=== PATIENT | male | born 1985 | race Caucasian/White ===

== ENCOUNTER → 2019-11-23 14:22 | Outpatient (BNVA) | payer OTHER, SELFPAY | PROVIDERS: Family Provider Family Medicine; PCP Family Medicine; Referring Provider Dermatology; Visit Provider Otolaryngology | DX: R04.0 Epistaxis (principal); J34.2 Deviated nasal septum | CPT/HCPCS: 99203; 99214 ==

== ENCOUNTER 2019-12-18 06:05 | Emergency (ER) | payer OTHER, SELFPAY ==
[2019-12-18 06:09] VITALS: BP 165/95; PULSE 77; RESP 16; TEMP 36.6; O2SAT 96; BMI 35.9
--- NOTE | 2019-12-18 06:13 | CT_ITS ---
WS: [id number] CT ABDOMEN PELVIS TECHNIQUE: Noncontrast CT of the abdomen and pelvis with coronal and sagittal reformatted images. CLINICAL INFORMATION: r flank pain COMPARISON: None. DLP: 2232.[address] scans at [facility] use at least one of these dose optimization techniques: automat ed exposure control; mA and/or kV adjustment per patient size (includes targeted exams where dose is matched to clinical indication); or iterative reconstruction. FINDINGS: Obstructing right proximal ureteral calculus measuring 3.9 mm. Moderate right proximal ureterectasis. Mild right hydronephrosis. Distal right ureter is decompressed. Normal left kidney and ureter. Noncontrast liver and gallbladder are normal. Noncontrast spleen is normal. Noncontrast pancreas is n ormal. Slight subsegmental atelectasis in the lung bases. Normal GE junction. Normal caliber abdomina l aorta. Normal sigmoid colon. Normal appendix. No evidence of acute appendicitis. No abdominal lymphadenopath y. No inguinal or pelvic sidewall lymphadenopathy. Notified Albert Wisdom M.D. at 12/18/2019 7:[address]/CT kidney stone [id number] IMPRESSION: 1. Obstructing right proximal 3.9 mm ureteral calculus. Mild right hydronephro sis with moderate right ureterectasis. 2. No other acute findings.
[2019-12-18] MEDS: sodium chloride 0.9% 1,000 ML 999 ML IV (06:17)
[2019-12-18 06:31] LABS: Basophils % 0.5 %; Eosinophils # 0.1 10^3/uL (0.0-0.8); Eosinophils % 1.8 %; Hemoglobin 14.4 g/dL (11.7-16.6); Lymphocytes # 1.7 10^3/uL (0.8-4.8); Lymphocytes % 27.5 %; Mean Corpuscular HGB Conc 33.5 g/dL (30.0-36.0); Mean Corpuscular Volume 92.5 fL (80-94); Mean Platelet Volume 9.8 fL (7.4-10.4); Monocytes # 0.4 10^3/uL (0.2-0.9); Monocytes % 6.8 %; Neutrophils # 3.8 10^3/uL (1.8-7.7); Neutrophils % 62.9 %; Nucleated Red Blood Cells % 0 %; Platelet Count 185 10^3/cmm (130-400); Red Blood Count 4.65 10^6/uL (4.1-5.3); Red Cell Distribution Width 12.6 % (12.1-15.1)
[2019-12-18 06:41] VITALS: RESP 16; O2SAT 99
[2019-12-18] MEDS: ondansetron 2 mg/ML SDV 2 mL 4 MG IVP (06:41)
[2019-12-18] MEDS: morphine 4 mg/mL SDV 1 mL IVP (06:41)
--- NOTE | 2019-12-18 06:44 | ED_ITS ---
HPI - General Adult General: Chief complaint: General Medical Stated complaint: right abd/back pain Time Seen by Provider: 12/18/19 06:15 History of Present Illness: HPI narrative: 34 yo male presents with complaints of R flank pain radiating into the R groin. He had not noticed any hematuria. no HX of renal stones. No dysuria urgency or frequency. No fever sweats or chills. Denies diarrhea, no nausea vomitting. Began over night. Onset (ago): hour(s) Location: abdomen (R flank) Radiation: other (R groin) Severity: severe Quality: stabbing Pain Consistency: intermittent Relieving factors: none Exacerbating factors: none Associated symptoms: Deny chest pain, dyspnea, malaise, nausea, rash or vomiting Review of Systems Const: Denies: fever, chills, body aches, change in appetite, fatigue or malaise ENMT: Denies: throat pain, ear pain, nasal discharge or nasal congestion Card: Denies: chest pain, edema, shortness of breath on exertion or shortness of breath when lying down Resp: Denies: shortness of breath, productive cough or non-productive cough GI: Denies: abdominal pain, nausea, vomiting, vomiting blood, coffee grounds in vomit, diarrhea, constipation, bloating, blood in stool or black tarry stool : Denies: flank pain, painful urination, urinary frequency or urinary urgency Skin/Breast: Denies: rash or itching [facility] ED PFSH: Medical History (Updated 12/18/19 @ 07:15 by Albert Wisdom DO) Deviated septum Social History Smoking and tobacco status: never smoked Alcohol intake: never Physical Exam Const: COMMON NORMALS: no apparent distress GENERAL APPEARANCE: cooperative and comfortable ORIENTATION/CONSCIOUSNESS: Yes awake, Yes oriented to person, Yes oriented to place and Yes oriented to time HENMT: COMMON NORMALS: normocephalic, head/scalp atraumatic, hearing grossly normal bilaterally, external ears normal, EAC's normal, TM's normal bilaterally, nasal mucous membranes and turbinates normal, moist oral mucous membranes and oropharynx normal HEAD & SCALP: normocephalic and atraumatic NOSE: nasal mucous membranes and turbinates normal EXTERNAL EAR: Yes external ears normal EXTERNAL AUDITORY CANAL: EAC's normal TYMPANIC MEMBRANE: TM's normal bilaterally Eye: COMMON NORMALS: PERRL, EOMs intact bilaterally, conjunctivae normal and no scleral icterus CONJUNCTIVA: Yes conjunctivae normal PUPIL: Yes PERRL Neck/C-Spine: COMMON NORMALS: full ROM, no lymphadenopathy, supple and no JVD Lymph: LYMPHATIC: no lymphadenopathy noted and no lymphedema noted Resp: COMMON NORMALS: normal respiratory effort, no retractions, no use of accessory muscles and clear to auscultation bilaterally AUSCULTATION: clear to auscultation bilaterally Cardio: COMMON NORMALS: no JVD, regular rate, regular rhythm and no murmurs RATE: regular rate RHYTHM: regular rhythm GI: COMMON NORMALS: soft to palpation and no hepatosplenomegaly AUSCULTATION: Yes normoactive bowel sounds PALPATION: Yes soft, No tender, No guarding and Yes no hepatosplenomegaly : BLADDER/KIDNEY EXAM: Yes CVA tenderness Back/Pelvis: GENERAL BACK: Yes CVA tenderness CVA tenderness: right Extremity: COMMON NORMALS: normal to inspection, normal capillary refill, no clubbing, cyanosis or edema, no calf tenderness and no pedal edema Neuro: SENSORIUM/ORIENTATION: Yes oriented to person, Yes oriented to place and Yes oriented to time Skin: COMMON NORMALS: no rashes or lesions noted GENERAL SKIN EXAM: no rashes or lesions noted Course ED course: 4mm mid/proximal ureter stone. Strain urine, discharged with pain nausea meds. Refer to urology. Vital Signs: Vital signs: Vital Signs Temperature 97.8 F 12/18/19 06:09 Pulse Rate 77 12/18/19 06:09 Respiratory Rate 16 12/18/19 06:41 Blood Pressure 165/95 12/18/19 06:09 Pulse Oximetry 99 12/18/19 06:41 MDM - General Adult Lab Data: Labs: Lab Results 12/18/19 12/18/19 12/18/19 Range/Units 06:24 06:24 06:35 WBC 6.0 (4.0-10.0) 10^3/ uL RBC 4.65 (4.1-5.3) 10^6/u L Hgb 14.4 (11.7-16.6) g/dL Hct 43.0 (42.0-52.0) % MCV 92.5 (80-94) fL MCH 31.0 (28.0-34.0) pg MCHC 33.5 (30.0-36.0) g/dL RDW 12.6 (12.1-15.1) % Plt Count 185 (130-400) 10^3/c mm MPV 9.8 (7.4-10.4) fL Neut % (Auto) 62.9 % Lymph % (Auto) 27.5 % [place] % (Auto) 6.8 % Eos % (Auto) 1.8 % Baso % (Auto) 0.5 % Neut # (Auto) 3.8 (1.8-7.7) 10^3/u L Lymph # (Auto) 1.7 (0.8-4.8) 10^3/u L [place] # (Auto) 0.4 (0.2-0.9) 10^3/u L Eos # (Auto) 0.1 (0.0-0.8) 10^3/u L Baso # (Auto) 0.0 (0.0-0.1) 10^3/u L Nucleated RBC % (a uto) 0 % Nucleated RBCs # 0.0 /100WBC Sodium 140 (136-145) mmol/L Potassium 3.9 (3.5-5.1) mmol/L Chloride 103 (98-107) mmol/L Carbon Dioxide 25 (22-29) mmol/L Anion Gap 15.9 (5-19) BUN 15 (6-20) mg/dL Creatinine 1.0 (0.7-1.2) mg/dL GFR Calculation 84.5 L (90-130) mL/min Glucose 116 H (65-115) mg/dL Calcium 9.5 (8.5-10.5) mg/dL Total Bilirubin 0.4 (0.15-1.2) mg/dL AST 24 (0-40) U/L ALT 45 H (0-41) U/L Alkaline Phosphata se 84 (40-130) IU/L C-Reactive Protein 3.2 (0.0-4.9) mg/L Total Protein 7.7 (6.6-8.7) g/dL Albumin 4.1 (3.5-5.2) g/dL Globulin 3.6 (1.3-4.6) g/dL Lipase 15 (13-60) U/L Urine Color Dark yellow (Yellow) Urine Appearance Clear (CLEAR) Urine pH 5.0 (5-7) Ur Specific Gravit y 1.030 (1.005-1.030) Urine Protein Trace (Negative) Urine Glucose (UA) Norm (Normal) Urine Ketones Negative (Negative) Urine Blood 3+ H (Negative) Urine Nitrate Negative (Negative) Urine Bilirubin Neg (NEGATIVE) Urine Urobilinogen 1.0 (Negative) mg/dL Ur Leukocyte [place] ase Negative (Negative) Urine RBC >100 H (0-2) /hpf Urine WBC 5-10 H (0-5) /hpf Ur Squamous Epith Cells Rare (0-5) Urine Bacteria Trace (NONE) Urine Mucus 2+ Discharge Plan Discharge Patient Disposition: Home, Self-Care Clinical Impression: Renal calculus, right Condition: Stable Prescriptions: New Fitzpatrick 5-325 mg tablet 1 tab PO Q6H PRN (Reason: pain) Qty: 25 RF: 0 Zofran 4 mg tablet 4 mg PO Q6H PRN (Reason: nausea and vomiting) Qty: 20 RF: 0 tamsulosin 0.4 mg capsule 0.4 mg PO DAILY Qty: 20 RF: 0 Discharge Orders: Discharge Order (Routine); Ordered 12/18/19 Ordered By: Albert Wisdom Referrals: Dexter Puente MD [Physician] - (R ureteral stone) Activity Restrictions/Additional Instructions: Case management will call with an appoitment with urology. Coding Level of Care Code ED Mailing Machine Assistant for Chg Fwd Exam Comprehensive
[2019-12-18 06:45] LABS: Protein Urine Trace (Negative); Urine Appearance Clear (CLEAR); Urine Color Dark Yellow (Yellow)
[2019-12-18 06:46] LABS: Alanine Aminotransferase 45 U/L (0-41); Albumin Level 4.1 g/dL (3.5-5.2); Alkaline Phosphatase 84 IU/L (40-130); Anion Gap 15.9 (5-19); Aspartate Amino Transferase 24 U/L (0-40); Blood Urea Nitrogen 15 mg/dL (6-20); Calcium 9.5 mg/dL (8.5-10.5); Carbon Dioxide 25 mmol/L (22-29); Chloride 103 mmol/L (98-107); Globulin 3.6 g/dL (1.3-4.6); Glomerular Filtration Rate 84.5 mL/min (90-130); Glucose 116 mg/dL (65-115); Lipase 15 U/L (13-60); Potassium 3.9 mmol/L (3.5-5.1); Sodium 140 mmol/L (136-145); Total Bilirubin 0.4 mg/dL (0.15-1.2); Total Protein 7.7 g/dL (6.6-8.7)
[2019-12-18 06:46] LABS: Add Urine Microscopic? YES; Bilirubin Urine Neg (NEGATIVE); Blood Urine 3+ (Negative); Glucose Urine UA Norm (Normal); Ketones Urine Negative (Negative); Leukocyte Esterase Urine Negative (Negative); Nitrate Urine Negative (Negative)
[2019-12-18 06:50] LABS: Add Urine Culture? Yes; Bacteria Urine TRACE; Mucus Urine 2+; RBC Urine >100 /hpf (0-2); Squamous Epithelial Cell Urine RARE (0-5)
[2019-12-18 06:58] LABS: C Reactive Protein 3.2 mg/L (0.0-4.9)
[2019-12-18 07:27] VITALS: BP 123/70; PULSE 75; RESP 16; O2SAT 94
--- NOTE | 2019-12-21 11:56 | DCPLANNER ---
late entry - heel caser had message to schedule a follow up appointment for patient with Dr. Puente. Patient had a follow up appointment scheduled for 12.21.19 and patient did attend the appointment.
== END 2019-12-18 07:28 | disposition home or self-care (01) ==
PROVIDERS: Emergency Medicine; Emergency Provider Family Medicine; Family Provider Family Medicine; PCP Family Medicine
DX: N13.2 Hydronephrosis with renal and ureteral calculous obstruction (principal)
CPT/HCPCS: 36415; 74176; 80053; 81001; 83690; 85025; 86140; 87086; 96361; 96374; 96375; 99283; A9270; J2270; J2405; J7030

== ENCOUNTER 2019-12-19 08:41 | Outpatient (CLI) | payer OTHER, SELFPAY ==
--- NOTE | 2019-12-19 08:30 | XR_ITS ---
WS: [id number] KUB, 12/19/2019 Clinical Data: Renal stone Comparison: CT abdomen and pelvis, 12/18/2019 Findings: Right ureteral calculus is probably located on the right at the L3-L4 disc level. There is a large amount of fecal material throughout the colon. No pelvic calcifications are seen. XR/XR KUB [id number] Impression: Right ureteral calculus probably located at the L3-L4 disc level.
== END 2019-12-19 08:42 | disposition home or self-care (01) ==
PROVIDERS: Family Provider Family Medicine; PCP Family Medicine; Visit Provider Urology
DX: N20.0 Calculus of kidney (principal)
CPT/HCPCS: 74018; 81001

== ENCOUNTER 2019-12-21 08:18 | Outpatient (CLI) | payer OTHER, SELFPAY ==
--- NOTE | 2019-12-21 08:23 | XR_ITS ---
WS: [id number] KUB, 12/21/2019 Clinical Data: URETERAL CALCULUS Comparison: KUB, 12/19/2019 Findings: There is no change in the position of the calculus. It is located to the right of the L3-L4 disc leve l. There is fecal material throughout the colon. No renal calculi are seen. There are no calculi in t he pelvis. XR/XR KUB [id number] Impression: No change in probable right mid ureteral calculus.
== END 2019-12-21 08:19 | disposition home or self-care (01) ==
PROVIDERS: Family Provider Family Medicine; PCP Family Medicine; Visit Provider Urology
DX: N20.1 Calculus of ureter (principal)
CPT/HCPCS: 74018; 81001

== ENCOUNTER 2019-12-25 10:31 | Day surgery (SDC) | payer OTHER, SELFPAY ==
[2019-12-22 16:35] VITALS: BMI 28.7
[2019-12-25] VITALS (9 sets, daily range): BP systolic 103–125; BP diastolic 57–82; PULSE 77–94; RESP 16–28; TEMP 36.2–36.4; O2SAT 92–96
--- NOTE | 2019-12-25 10:46 | XR_ITS ---
WS: [id number] XR KUB [id number] REASON FOR EXAM: Refractory right ureteral calculus FINDINGS: Previous exam of December 21, 2019 suggested a stone at the level of the L3-4 vertebra as. A stone is not seen in this area today there is a questionable stone in the region of the bladder. XR/XR KUB [id number] IMPRESSION: Renal calculus appears to have moved down into the area near the bladder.
--- NOTE | 2019-12-25 11:35 | ANES.PREANE2 ---
Pre-Anesthetic Assessment Pre-Anesthetic Assessment: Height/Weight: Height 1.78 m Weight 116.12 kg Temp Pulse Resp BP Pulse Ox 97.5 F L 77 18 124/82 96 12/25/19 11:06 12/25/19 11:06 12/25/19 11:06 12/25/19 11:06 12/25/19 11:06 Preop Diagnosis: Refractory right ureteral calculus/renal colic Proposed Procedure: Operation Date: 12/25/19 13:20 Proposed Procedures p ESWL 67519 24778 N20.1(Not Applicable) - Dexter Puente MD s poss Cystoscopy(Not Applicable) - Dexter Puente MD s Ureteral Stent Placement(Not Applicable) - Dexter Puente MD s Ureteroscopy(Not Applicable) - Dexter Puente MD Last intake: Intake Last Liquid Date 12/25/19 Last Liquid Time 07:00 Last Solid Date 12/23/19 Last Solid Time 19:00 Exam: Pre-Anes Outpt Exam: alert, oriented x 3, clear to auscultation bilaterally and regular rate & rhythm Airway: Submandibular: WNL Cervical ROM: WNL MP: 1 CV/HEM: CV/HEM: HTN : Comments: right ureteral stone Anesthetic Plan: ASA status: 2 Anesthesia: General PFSH Anesthesia PFSH: Social History Smoking and tobacco status: never smoked Alcohol intake: never Adopted: No Caregiver/support person: No Lives independently: No Household members: spouse Marital status: Current occupational status: employed History of recent travel: No Current gender identity: Male Data Anesthesia Cardiac Studies: No Data to Display
[2019-12-25] MEDS: sodium chloride 0.9% 1,000 ML 30 ML IV (11:49)
--- NOTE | 2019-12-25 12:46 | W.PM.OPSUD ---
Surgery/Procedure H&P Update DATE OF PROCEDURE: December 25, 2019 DATE H&P PERFORMED: 12/21/19 H&P UPDATE INFORMATION: I have reviewed H&P completed within last 30 days and Changes to prior documentation as noted here CHANGES TO PREVIOUS DOCUMENTATION: I saw the patient on the and he was seen again on the by my nurse practitioner. Originally on the he wanted to try and pass the stone but on the he was having significantly increased right renal colic. The stone appeared to be in the same position. At that point he wanted to try to go ahead and schedule intervention. We reviewed endoscopy versus ESWL and he chose the latter with or without stent pending response to treatment. Preoperative KUB shows the stone having migrated to the distal ureter. I reviewed that with the patient and offered him further conservative management with hope that he would spontaneously pass it versus go ahead and treat and he chose the latter. Plans will be to do extracorporeal shockwave lithotripsy followed by stent if it appears that the stone has not changed significantly. We will consider retrograde pyelogram if the stone is difficult to identify. All of the above was explained to the patient his mother and his girlfriend. They were comfortable with the plans and agreed to proceed as above. PREOP DIAGNOSIS: Refractory right ureteral calculus/renal colic PLANNED PROCEDURE: Operation Date: 12/25/19 13:20 Proposed Procedures p ESWL [id number] 80357 N20.1(Not Applicable) - Dexter Puente MD s poss Cystoscopy(Not Applicable) - MD michelle Simms Ureteral Stent Placement(Not Applicable) - Dexter Puente MD s Ureteroscopy(Not Applicable) - Dexter Puente MD
--- NOTE | 2019-12-25 13:47 | P.OP_ITS ---
Operative Report Date of procedure: December 25, 2019 Pre-op Diagnosis: Refractory right ureteral calculus/renal colic Post-op diagnosis: same Procedure Done: Extracorporeal shockwave lithotripsy to right distal ureteral stone Pathology: none sent Surgeon: Kwame Anesthesia: General Complications: None Findings: Good change demonstrated in the character of the stone. A total of 3000 shocks administered with an intensity ranging from 1-6. Condition: stable Disposition: PACU Brief History: Johan is a very pleasant 34-year-old white male recently diagnosed with a right proximal ureteral stone with obstruction. He had several episodes of severe right renal colicky pain and ultimately chose to proceed with treatment after failure of the stone to spontaneously pass. KUB preoperatively showed the stone had moved into the distal ureter. He elected to proceed on as scheduled. Procedure: After routine preoperative evaluation examination and obtaining of informed consent he was taken to the operating suite on 12/25/2019 where general anesthesia was administered without difficulty after appropriate timeout was performed, SCDs confirmed to be functioning, preoperative antibiotics administered, beta- charlene protocol confirmed. Positioned on the Dornier unit in supine position pain careful attention to avoiding pressure points. With a shock head positioned anteriorly the right distal ureteral stone was identified and easily focused upon. Shockwave was initiated at a rate of 60 and continued at that pace throughout. Shockwave was initiated at her intensity of 1 and advance to an intensity of 6. Good change was noted. After 3000 shocks the procedure was completed. Tolerated the procedure well without complications. Awakened in the operating room and returned to the recovery room in stable condition. PLANS: 1. Follow-up next week with a KUB first. Strain all voids.
--- NOTE | 2019-12-25 13:55 | SUR.PHASEI ---
1359 PATIENT TO PACU AT THIS TIME. RR EVEN AND UNLABORED. PLACED ON SIMPLE MASK AT 8L, SPO2 98%. PATIENT UNRESPONSIVE TO VERBAL STIMULI, PROTECTING AIRWAY.
--- NOTE | 2019-12-25 14:22 | SUR.PHASEI ---
1419 PATIENT TO OPS AT THIS TIME. NO DISTRESS. PWD. PAIN 6/10, WANTING TO TAKE PO PAIN PILL IN OPS. TOLERATING ICE CHIPS WELL.
[2019-12-25] MEDS: HYDROcodone-acetaminophen 5-325 mg Tablet 1 TAB PO (14:44)
== END 2019-12-25 15:20 | disposition home or self-care (01) ==
PROVIDERS: Family Provider Family Medicine; PCP Family Medicine; Visit Provider Urology
PROC: (CPT 50590; principal; 2019-12-25 12:00)
DX: N20.2 Calculus of kidney with calculus of ureter (principal); I10 Essential (primary) hypertension; Z82.49 Family history of ischemic heart disease and other diseases of the circulatory system; Z83.3 Family history of diabetes mellitus
CPT/HCPCS: 50590; 12345; 74018; J2405; J2704; J2710; J3010; J3490; J7030

== ENCOUNTER 2020-01-03 08:26 | Outpatient (CLI) | payer OTHER, SELFPAY ==
--- NOTE | 2020-01-03 08:15 | XRR_ITS ---
PROCEDURE INFORMATION: Exam: XR Abdomen, 1 View Exam date and time: 01/03/2020 8:37 AM Age: 34 years old Clinical indication: Condition or disease; Kidney or ureter condition; Calculus (stone) in ureter; Additional info: Calculus of distl right ureter TECHNIQUE: Imaging protocol: XR of the abdomen. Views: Frontal supine view of the abdomen. 1 View. COMPARISON: CR XR KUB [id number] 12/25/2019 10:49 AM FINDINGS: Gastrointestinal tract: bowel gas pattern is nonspecific. Air filled large bowel including distal rectal gas. Moderate amount stool throughout the large bowel. Organs: No calcifications are seen overlying the renal outlines or the expected course of the right or left ureters. No suspicious calcifications within the pelvis. Previously visualized calculus within the right pelvis not clearly evident on this exam. Bones/joints: Unremarkable. XR/XR KUB [id number] IMPRESSION: 1. Bowel gas pattern is nonspecific. Air filled large bowel including distal rectal gas. 2. Moderate amount stool throughout the large bowel. 3. No calcifications are seen overlying the renal outlines or the expected course of the right or left ureters. No suspicious calcifications within the pelvis. Previously visualized calculus within the right pelvis not clearly evident on this exam.
== END 2020-01-03 08:27 | disposition home or self-care (01) ==
PROVIDERS: Family Provider Family Medicine; PCP Family Medicine; Visit Provider Urology
DX: N20.1 Calculus of ureter (principal)
CPT/HCPCS: 74018

== ENCOUNTER → 2020-01-17 08:45 | Outpatient (BNVA) | payer OTHER, SELFPAY | PROVIDERS: Family Provider Family Medicine; PCP Family Medicine; Visit Provider Family Medicine | DX: I10 Essential (primary) hypertension (principal); R19.4 Change in bowel habit | CPT/HCPCS: 80053; 80061; 82044; 85025 ==

== ENCOUNTER → 2020-07-17 08:50 | Outpatient (BNVA) | payer OTHER, SELFPAY | PROVIDERS: Family Provider Family Medicine; PCP Family Medicine; Visit Provider Family Medicine | DX: I10 Essential (primary) hypertension (principal) | CPT/HCPCS: 80053 ==

== ENCOUNTER → 2021-01-14 09:02 | Outpatient (BNVA) | payer BC, SELFPAY | PROVIDERS: Family Provider Family Medicine; PCP Family Medicine; Visit Provider Family Medicine | DX: I10 Essential (primary) hypertension (principal) | CPT/HCPCS: 80053; 80061; 81015; 82043; 85025 ==

== ENCOUNTER → 2021-07-22 09:14 | Outpatient (BNVA) | payer BC, SELFPAY | PROVIDERS: Family Provider Family Medicine; PCP Family Medicine; Visit Provider Family Medicine | DX: I10 Essential (primary) hypertension (principal) | CPT/HCPCS: 80053 ==